=== PATIENT | female | born 1965 | race Caucasian/White ===

== ENCOUNTER → 2019-09-13 | Outpatient (CLI) | payer SELFPAY ==
[2019-09-13 12:40] LABS: Absolute Lymphocyte Count 1.37 X10^3/uL (0.83-4.51); Basophil# 0.05 X10^3/uL; Basophil% 0.8 % (0-1); Eosinophil# 0.15 X10^3/uL; Eosinophils% 2.4 % (0-5); Hematocrit 40.4 % (37-47); Hemoglobin 13.8 g/dL (12.0-15.0); Lymphocyte # 1.37 X10^3/ul (4.0); Lymphocyte % 22.3 % (19-41); Mean Corp Hgb Conc 34.2 g/dL (32-36); Mean Corpuscular Hgb 34.5 pg (27.0-32.0); Mean Platelet Vol. 11.5 fl (6.2-12.0); Monocyte# 0.58 X10^3/uL; Monocyte% 9.5 % (0-10); NRBC Flagged by Analyzer 0 % (0-5); Neutrophil # 3.96 X10^3/uL (2.7-7.7); Neutrophil % 64.7 % (47-70); Platelet Count 174 K/mm3 (150-450); RBC Distribution Width CV 11.9 % (11.6-14.6); RBC Distribution Width SD 44.3 fl (35.1-43.9); White Blood Count 6.1 K/mm3 (4.4-11.0)
[2019-09-13 13:36] LABS: Anion Gap 8 (5-15); BUN 19 mg/dL (7-18); BUN/Creat Ratio 21.8 RATIO (10-20); Calcium,Total 9.2 mg/dL (8.5-10.1); Chloride 103 mmol/L (98-107); Creatinine, Serum 0.87 mg/dL (0.55-1.02); EST Glomerular Filtration Rate 72 mL/min (>60); Est Glom Filt Rate - Afr Amer 87 mL/min (>60); Glucose 109 mg/dL (74-106); Potassium 3.8 mmol/L (3.5-5.1); Sodium Level 138 mmol/L (136-145); Uric Acid 7.7 mg/dL (2.6-6.0)
== END | disposition home or self-care (01) ==
PROVIDERS: PCP Family Medicine; Visit Provider Family Medicine
DX: I10 Essential (primary) hypertension (principal); M10.9 Gout, unspecified
CPT/HCPCS: 36415; 80048; 84550; 85025

== ENCOUNTER → 2020-01-17 09:22 | Outpatient (CLI) | payer SELFPAY ==
[2020-01-17 13:30] LABS: Anion Gap 11 (5-15); BUN 11 mg/dL (7-18); BUN/Creat Ratio 13.6 RATIO (10-20); Calcium,Total 9.4 mg/dL (8.5-10.1); Chloride 105 mmol/L (98-107); Creatinine, Serum 0.81 mg/dL (0.55-1.02); EST Glomerular Filtration Rate 78 mL/min (>60); Est Glom Filt Rate - Afr Amer 95 mL/min (>60); Glucose 110 mg/dL (74-106); Potassium 3.3 mmol/L (3.5-5.1); Sodium Level 141 mmol/L (136-145); Uric Acid 6.9 mg/dL (2.6-6.0)
== END ==
LOC: BFHLAB 09:24
PROVIDERS: PCP Family Medicine; Visit Provider Family Medicine
DX: I10 Essential (primary) hypertension (principal); M10.9 Gout, unspecified
CPT/HCPCS: 36415; 80048; 84550

== ENCOUNTER → 2020-02-14 08:37 | Outpatient (CLI) | payer SELFPAY ==
[2020-02-14 12:43] LABS: Anion Gap 6 (5-15); BUN 12 mg/dL (7-18); BUN/Creat Ratio 14.6 RATIO (10-20); Calcium,Total 9.1 mg/dL (8.5-10.1); Chloride 105 mmol/L (98-107); Creatinine, Serum 0.82 mg/dL (0.55-1.02); EST Glomerular Filtration Rate 77 mL/min (>60); Est Glom Filt Rate - Afr Amer 93 mL/min (>60); Glucose 103 mg/dL (74-106); Potassium 3.5 mmol/L (3.5-5.1); Sodium Level 139 mmol/L (136-145); Uric Acid 4.7 mg/dL (2.6-6.0)
== END ==
LOC: BFHLAB 08:38
PROVIDERS: PCP Family Medicine; Visit Provider Family Medicine
DX: I10 Essential (primary) hypertension (principal); M10.9 Gout, unspecified
CPT/HCPCS: 36415; 80048; 84550

== ENCOUNTER 2023-01-19 20:35 | Emergency (ER) | payer OTHER, SELFPAY ==
[2023-01-19 20:35] VITALS: BP 178/90; PULSE 85; RESP 16; TEMP 36.8; O2SAT 100; BMI 29.5
--- NOTE | 2023-01-19 21:23 | RAD_ITS ---
STUDY: X-RAY - RIGHT RADIUS AND ULNA REASON FOR EXAM: Female, 57 years old. injury TECHNIQUE: 2 view(s) of the forearm. COMPARISON: None. FINDINGS: There is no demonstrated soft tissue swelling. Normal visualized radius. Normal visualized ulna. RAD/Forearm 2 Views IMPRESSION: Normal x-ray examination of the radius and ulna. Electronically Signed: Masoud Corey MD at 21:35 EST ,
--- NOTE | 2023-01-19 21:24 | EDS_ITS ---
HPI History of Present Illness Chief Complaint: Upper Extremity Injury Informant: patient Narrative Narrative: Patient presents secondary to right forearm injury. Patient states that she was at her daughter's house in the [place] area when she missed a step going down into the living room. She slipped striking her right forearm against the ceramic floor. She has swelling noted along the mid forearm. She is right-hand dominant. She did take ibuprofen prior to arrival and has been using ice to the area. [facility] Medical History (Updated 01/19/23 @ 21:[address] Carmen Soares MD) Depression Hypertension Home Medications citalopram 40 mg tablet 40 mg PO DAILY 07/27/15 [History Last Taken Unknown] hydrochlorothiazide 12.5 mg capsule 12.5 mg PO DAILY ##30 08/04/15 [Rx Last Taken Unknown] lisinopril 10 mg tablet 10 mg PO DAILY #30 tabs 08/04/15 [Rx Last Taken 09/01/15 07:30 10 mg] ondansetron 4 mg disintegrating tablet 4 mg PO Q6H PRN PRN Nausea #20 tabs 09/01/15 [Rx Last Taken Unknown] oxycodone-acetaminophen 5 mg-325 mg tablet 1 - 2 tab PO Q4H PRN PRN Pain #60 tabs 09/01/15 [Rx Last Taken Unknown] rivaroxaban 10 mg tablet (Xarelto) 10 mg PO DAILY ##20 09/01/15 [Rx Last Taken Unknown] Allergy/AdvReac Type Severity Reaction Status Date / Time hydrocodone bitartrate AdvReac STOMACH Verified 01/19/23 20:37 [From Vicodin] PAIN N/V Social History Smoking Status: Never smoker ROS ROS ED Constitutional Constitutional ED: Denies chills or fever(s) Eyes Eyes: Denies discharge from eye(s) ENT ENT ED: Denies discharge from eye(s), rhinorrhea or sore throat Cardiovascular Cardiovascular: Denies chest pain Respiratory/Chest Respiratory/Chest: Denies dyspnea Gastrointestinal Gastrointestinal: Denies abdominal pain Musculoskeletal Musculoskeletal: Reports extremity pain; Denies back pain Integumentary Reports Abrasions; Denies rash Neurologic Neurologic: Denies headache(s) or weakness Psychiatric Psychiatric: Denies anxiety or depression Allergic/Immunologic Allergic/Immunologic ED: Denies lip swelling or urticaria EXAM Physical Exam Const Vital Signs: 01/19/23 20:35 Temperature 98.3 F Temperature Source Temporal Pulse Rate 85 Respiratory Rate 16 Blood Pressure 178/90 H Blood Pressure Mean 119 Pulse Ox 100 Oxygen Delivery Method Room Air Positive well nourished and well developed General Appearance ED: well developed HEENT Reports moist mucous membranes Eyes EOMs intact bilaterally Chest Wall inspection of chest normal Resp normal respiratory effort Cardio regular rate and regular rhythm Extremity Extremity Narrative: Patient has hematoma with edema and superficial abrasion to the mid forearm. Good range of motion at the elbow and wrist. No tenderness at the shoulder. Strong distal pulses and strong hand grasp. Normal sensation. Neuro oriented x3 and moves all extremities MDM MDM MDM Narrative Medical decision making narrative: Right forearm x-rays obtained to evaluate for fracture. Right foot x-rays per my interpretation reveals soft tissue swelling with no evidence of fracture. Radiology interpretation is reviewed and agrees. Kavon wrap was applied to the area to help with her hematoma reabsorption. Patient will continue ibuprofen. Discharge Plan Triage Chief Complaint: Upper Extremity Injury ED Provider: Carmen Soares Dx/Rx/DC Orders Clinical Impression: Contusion of forearm, Hematoma Instructions: ED Contusion, Upper Extremity, ED Hematoma Prescriptions: No Action citalopram 40 MG tablet 40 mg PO DAILY oxycodone-acetaminophen 1 TABLET tablet 1 - 2 tab PO Q4H PRN PRN (Reason: Pain) Qty: 60 0RF ondansetron 4 MG tablet 4 mg PO Q6H PRN PRN (Reason: Nausea) Qty: 20 0RF rivaroxaban [Xarelto] 10 MG tablet 10 mg PO DAILY Qty: 20 0RF lisinopril 10 MG tablet 10 mg PO DAILY Qty: 30 0RF hydrochlorothiazide 12.5 MG capsule 12.5 mg PO DAILY Qty: 30 0RF Primary Care Provider: Ana Marquez Referrals: NOT,DEFINED [Non-Staff] - Disposition Disposition: Home, Self Care
[2023-01-19 21:48] VITALS: BP 178/90; PULSE 85; RESP 16; O2SAT 100
== END 2023-01-19 21:50 | disposition home or self-care (01) ==
PROVIDERS: Emergency Provider Emergency Medicine; PCP Nurse Practitioner Family; Visit Provider Emergency Medicine
DX: S50.11XA Contusion of right forearm, initial encounter (principal); I10 Essential (primary) hypertension; W10.9XXA Fall (on) (from) unspecified stairs and steps, initial encounter
CPT/HCPCS: 73090; 99282

== ENCOUNTER 2023-02-07 18:33 | Emergency (ER) | payer OTHER, SELFPAY ==
[2023-02-07 18:34] VITALS: BP 133/96; PULSE 100; RESP 18; TEMP 36.8; O2SAT 98
--- NOTE | 2023-02-07 18:50 | CT_ITS ---
STUDY: CT FACIAL BONES WITHOUT CONTRAST REASON FOR EXAM: Female, 58 years old. trauma RADIATION DOSAGE (If Supplied By Facility): CTDIvol = ( 29.38 ) mGy, DLP = ( 1942.48 ) mGycm TECHNIQUE: The patient was scanned in a multi detector CT scanner. Sagittal and coronal images were reconstructed. Individualized dose optimization techniques were used for this CT. COMPARISON: None. FINDINGS: Subcutaneous soft tissue swelling for head. Normal orbital grant and orbital contents. Minimally displaced nasal bone fractures. Normal facial bones. Normal visualized paranasal sinuses. CT/Sinus/Facial Bone IMPRESSION: Nasal bone fractures Electronically Signed: Nimesh Carrera MD at 19:55 EST ,
--- NOTE | 2023-02-07 18:50 | CT_ITS ---
STUDY: CT BRAIN WITHOUT CONTRAST REASON FOR EXAM: Female, 58 years old. trauma RADIATION DOSAGE (If Supplied By Facility): CTDIvol = ( 44.99 ) mGy, DLP = ( 1942.48 ) mGycm TECHNIQUE: Transaxial CT imaging of the brain was performed without administration of intravenous contrast material. Individualized dose optimization techniques were used for this CT. COMPARISON: No relevant priors. FINDINGS: Normal soft tissue structures. Normal calvarium. Normal size ventricles and extra-axial spaces for the patient''s age. Normal white matter tracts of the cerebral hemispheres. Normal basal ganglia and thalami. Normal brainstem. Normal cerebellum. There is no intracranial hemorrhage. There are no findings of an acute ischemic infarction. Normal visualized paranasal sinuses. CT/Brain/Head without Contrast IMPRESSION: Normal unenhanced CT scan of the brain. Electronically Signed: Nimesh Carrera MD at 19:51 EST ,
--- NOTE | 2023-02-07 18:50 | CT_ITS ---
STUDY: CT CERVICAL SPINE WITHOUT CONTRAST REASON FOR EXAM: Female, 58 years old. trauma RADIATION DOSAGE (If Supplied By Facility): CTDIvol = ( 26.44 ) mGy, DLP = ( 1942.48 ) mGycm TECHNIQUE: High resolution transaxial imaging was performed without contrast material. Sagittal and coronal images were reconstructed. Individualized dose optimization techniques were used for this CT. COMPARISON: None FINDINGS: Normal craniovertebral junction. Normal anterior atlantoaxial articulation. Normal odontoid process. Ossification anterior longitudinal ligament. Normal cervical lordosis. Normal vertebral bodies and posterior osseous elements. C2-3: Normal endplates. Normal disc height and morphology. Normal central canal and intervertebral neuroforamina. C3-4: Normal endplates. Normal disc height and morphology. Normal central canal and narrowed right intervertebral neuroforamina. C4-5: Normal endplates. Normal disc height and morphology. Normal central canal and narrowed right intervertebral neuroforamina. C5-6: Normal endplates. Normal disc height and morphology. Normal central canal and narrowed right intervertebral neuroforamina. C6-7: Normal endplates. Normal disc height and morphology. Normal central canal and narrowed right intervertebral neuroforamina. C7-T1: Normal endplates. Normal disc height and morphology. Normal central canal and intervertebral neuroforamina. Normal visualized soft tissue structures. CT/Spine Cervical without Contras IMPRESSION: No fracture. Hypertrophic facet disease and multilevel neural foraminal narrowing on the right Electronically Signed: Nimesh Carrera MD at 19:59 EST ,
--- NOTE | 2023-02-07 18:51 | EDS_ITS ---
HPI History of Present Illness Chief Complaint: Trauma Detail of Chief Complaint: Fall Informant: patient Onset/Context/Timing Onset: Today Narrative Narrative: Patient presents after a fall at work. She states her leg got caught in a cord and she fell forward onto the ground. No loss of consciousness. She complains of facial pain. She states teeth feel as if they fit together appropriately. Although her medication list includes Xarelto, she states she has been off of this medication for some time. [facility] Medical History Depression Hypertension Home Medications citalopram 40 mg tablet 40 mg PO DAILY 07/27/15 [History Last Taken Unknown] hydrochlorothiazide 12.5 mg capsule 12.5 mg PO DAILY ##30 08/04/15 [Rx Last Taken Unknown] lisinopril 10 mg tablet 10 mg PO DAILY #30 tabs 08/04/15 [Rx Last Taken 09/01/15 07:30 10 mg] ondansetron 4 mg disintegrating tablet 4 mg PO Q6H PRN PRN Nausea #20 tabs 09/01/15 [Rx Last Taken Unknown] oxycodone-acetaminophen 5 mg-325 mg tablet 1 - 2 tab PO Q4H PRN PRN Pain #60 tabs 09/01/15 [Rx Last Taken Unknown] rivaroxaban 10 mg tablet (Xarelto) 10 mg PO DAILY ##20 09/01/15 [Rx Last Taken Unknown] Allergy/AdvReac Type Severity Reaction Status Date / Time hydrocodone bitartrate AdvReac STOMACH Verified 02/07/23 18:34 [From Vicodin] PAIN N/V Social History Smoking Status: Never smoker ROS [facility] ED Constitutional Constitutional ED: Denies chills or fever(s) Eyes Eyes: Denies change in vision or discharge from eye(s) ENT ENT ED: Reports other Details: Facial pain. Mild blood from nose. ; Denies discharge from eye(s), rhinorrhea or sore throat Cardiovascular Cardiovascular: Denies chest pain or palpitations Respiratory/Chest Respiratory/Chest: Denies cough or dyspnea Gastrointestinal Gastrointestinal: Denies abdominal pain, nausea or vomiting Genitourinary Genitourinary ED: Denies dysuria Musculoskeletal Musculoskeletal: Denies back pain, extremity pain or neck pain Integumentary Reports Abrasions; Denies rash Neurologic Neurologic: Denies headache(s) or weakness Psychiatric Psychiatric: Denies anxiety or depression Allergic/Immunologic Allergic/Immunologic ED: Denies lip swelling or urticaria EXAM Physical Exam Const Vital Signs: 02/07/23 18:34 Temperature 98.2 F Temperature Source Temporal Pulse Rate 100 Respiratory Rate 18 Blood Pressure 133/96 H Blood Pressure Mean 108 Pulse Ox 98 Oxygen Delivery Method Room Air Positive well nourished and well developed General Appearance ED: well developed HEENT HEENT Narrative: Mild edema and erythema across patient's nose. She has a superficial abrasion approximately 4 mm in length. No full-thickness laceration. Teeth are stable and normally aligned. Nasal exam reveals scant blood in the nares bilaterally. No focal site of bleeding. No evidence of septal hematoma. Eyes EOMs intact bilaterally Neck full ROM Neck Narrative: No focal C-spine tenderness. Chest Wall inspection of chest normal and palpation of chest normal Resp normal respiratory effort and clear to auscultation bilaterally Cardio regular rhythm Rate: regular rate GI non-tender Palpation: soft Back/Spine normal to inspection Extremity normal to inspection Neuro oriented x3, moves all extremities, no focal motor deficits and no sensory deficits noted Psych mental status grossly normal and thought process normal Skin Skin Narrative: Nasal abrasion as noted above. MDM MDM MDM Narrative Medical decision making narrative: Patient sent for CT imaging of her brain, C-spine, and facial bones to evaluate for fracture, bleed, edema. Patient declines anything for pain at this time. Radiography Diagnostic Testing: Clinical Impression(s) from Imaging Studies Brain CT 02/07/23 18:50 IMPRESSION: Normal unenhanced CT scan of the brain. Electronically Signed: Nimesh Carrera MD at 19:51 EST Reading Location ID and State: [employer] / ID Tel , Service support , Cervical Spine CT 02/07/23 18:50 IMPRESSION: No fracture. Hypertrophic facet disease and multilevel neural foraminal narrowing on the right Electronically Signed: Nimesh Carrera MD at 19:59 EST Reading Location ID and State: [facility] / [place] Tel , Service support , Facial/Sinus 02/07/23 18:50 IMPRESSION: Nasal bone fractures Electronically Signed: Nimesh Carrera MD at 19:55 EST , Treatment and Re-Evaluation Narrative: CT scan of the head is unremarkable. CT of the C-spine reveals no evidence of fracture. Chronic changes noted. CT of the facial bones revealed nasal bone fractures with minimal displacement. Nasal examination reveals no evidence of septal hematoma. Test results discussed with the patient. She will follow-up with her [employer] company and if there is any further problems with then be referred to ENT. Discharge Plan Triage Chief Complaint: Trauma Other Complaint: Other, Pain/Inj ED Provider: Carmen Soares Dx/Rx/DC Orders Clinical Impression: Closed fracture nasal bone, Fall Instructions: ED Nose Fracture, with X-Ray Prescriptions: No Action citalopram 40 MG tablet 40 mg PO DAILY oxycodone-acetaminophen 1 TABLET tablet 1 - 2 tab PO Q4H PRN PRN (Reason: Pain) Qty: 60 0RF ondansetron 4 MG tablet 4 mg PO Q6H PRN PRN (Reason: Nausea) Qty: 20 0RF rivaroxaban [Xarelto] 10 MG tablet 10 mg PO DAILY Qty: 20 0RF lisinopril 10 MG tablet 10 mg PO DAILY Qty: 30 0RF hydrochlorothiazide 12.5 MG capsule 12.5 mg PO DAILY Qty: 30 0RF Stand Alone Forms: Work Status Form Primary Care Provider: Ana Marquez Referrals: [facility] [Group of Physicians] - 3-5 Days Ana Marquez, [employer] [Primary Care Provider] - Disposition Disposition: Home, Self Care
[2023-02-07 19:01] VITALS: BMI 32.4
[2023-02-07 20:35] VITALS: PULSE 72; RESP 14
== END 2023-02-07 20:36 | disposition home or self-care (01) ==
PROVIDERS: Emergency Provider Emergency Medicine; PCP Nurse Practitioner Family; Visit Provider Emergency Medicine
DX: S02.2XXA Fracture of nasal bones, initial encounter for closed fracture (principal); I10 Essential (primary) hypertension; W01.0XXA Fall on same level from slipping, tripping and stumbling without subsequent striking against object, initial encounter; Y99.0 Civilian activity done for income or pay
CPT/HCPCS: 70450; 70486; 72125; 99282